=== PATIENT | female | born 1970 | race Caucasian/White ===

== ENCOUNTER 2017-01-03 09:18 | Emergency (ER) | payer OTHER ==
[~2017-01-03] VITALS: Ht 157.4 cm; Wt 94.8 kg
[~2017-01-03 09:18] MED LIST: ADVAIR 250/501 EA INH; AMINOPHYLLIN200 MG PO; ANTIBIOTIC O500 U/GM TP; ASPIR LOW81 MG PO; ATROVENT 0.03%30 ML NAS; BACTRIM DS 8001 TA1 PO; BACTRIM DS 8001 TAB PO; BENADRYL25 M2 PO; CEPHALEXIN500 M1 PO; Cepacol PO; DESYREL; DUONEB 3 MG/3 ML3 M1 NEB; KROGER NIC21 MG/24 H T; LEVAQUIN750 M1 PO; LIDEX 0.05% CRE15 GM T; METOPROLOL SUCC25 M2 PO; MOTRIN800 MG PO; MUCINEX ER600 MG PO; NEBULIZER INH; PERCOCET 325 MG1 TA2 PO; PREDNISONE10 MG PO; PREDNISONE50 MG PO; PYRIDIUM100 MG PO; Percocet 325 MG1 TAB PO; RISPERDAL1 M1 PO; RISPERDAL2 M1 PO; ROBAXIN750 MG PO; ROBITUSSIN DM480 ML PO; SYMBICORT1 AE1 INH; TOPROL XL25 MG PO; TRAMADOL HCL50 MG PO; TRAZODONE100 MG PO; VENTOLIN 02.5 MG/3 M INH; VENTOLIN H0.09 MG/AC INH; ZITHROMAX Z PA250 MG PO
[2017-01-03 09:29] VITALS: BP 175/96
[2017-01-03] MEDS ORDERED: NAPROSYN500 MG PO (09:37)
== END 2017-01-03 10:32 | disposition home or self-care (01) ==
LOC: ED 09:18
DX: S82.891A Other fracture of right lower leg, initial encounter for closed fracture (principal); F17.200 Nicotine dependence, unspecified, uncomplicated; F12.10 Cannabis abuse, uncomplicated; J44.9 Chronic obstructive pulmonary disease, unspecified; F32.9 Major depressive disorder, single episode, unspecified; E78.5 Hyperlipidemia, unspecified; I10 Essential (primary) hypertension; I25.2 Old myocardial infarction; E66.9 Obesity, unspecified; Z68.39 Body mass index [BMI] 39.0-39.9, adult; Z79.899 Other long term (current) drug therapy; Z90.49 Acquired absence of other specified parts of digestive tract; Z98.890 Other specified postprocedural states; Z98.51 Tubal ligation status; Z90.711 Acquired absence of uterus with remaining cervical stump; X58.XXXA Exposure to other specified factors, initial encounter; Y93.89 Activity, other specified; Y92.89 Other specified places as the place of occurrence of the external cause; Y99.9 Unspecified external cause status

== ENCOUNTER → 2017-01-11 | Outpatient (CLI) | payer OTHER ==
[~2017-01-11] MED LIST changes: +NAPROSYN500 MG PO
== END | disposition home or self-care (01) ==
LOC: MAMMO 10:26
DX: Z12.31 Encounter for screening mammogram for malignant neoplasm of breast (principal)

== ENCOUNTER → 2017-02-01 | Outpatient (CLI) | payer OTHER | END | disposition home or self-care (01) | LOC: ORTHO 02:35 | DX: S82.54XA Nondisplaced fracture of medial malleolus of right tibia, initial encounter for closed fracture (principal); X58.XXXA Exposure to other specified factors, initial encounter; Y93.89 Activity, other specified; Y92.89 Other specified places as the place of occurrence of the external cause; Y99.8 Other external cause status ==

== ENCOUNTER 2019-01-09 06:18 | Emergency (ER) | payer OTHER ==
[~2019-01-09] VITALS: Ht 157.4 cm; Wt 102.1 kg
[2019-01-09 06:20] VITALS: BP 122/70
[2019-01-09] MEDS ORDERED: NORCO 5-325 TA1 EACH PO (08:10)
[2019-01-09] MEDS ORDERED: Motrin,Rufen800 MG PO (08:11)
== END 2019-01-09 08:45 | disposition home or self-care (01) ==
LOC: ED 06:18
DX: S90.02XA Contusion of left ankle, initial encounter (principal); F12.10 Cannabis abuse, uncomplicated; F17.200 Nicotine dependence, unspecified, uncomplicated; J44.9 Chronic obstructive pulmonary disease, unspecified; I10 Essential (primary) hypertension; E78.5 Hyperlipidemia, unspecified; I25.2 Old myocardial infarction; E66.9 Obesity, unspecified; Z68.39 Body mass index [BMI] 39.0-39.9, adult; Z90.49 Acquired absence of other specified parts of digestive tract; Z98.890 Other specified postprocedural states; Z98.51 Tubal ligation status; Z79.899 Other long term (current) drug therapy; W17.2XXA Fall into hole, initial encounter; Y93.89 Activity, other specified; Y92.89 Other specified places as the place of occurrence of the external cause; Y99.9 Unspecified external cause status

== ENCOUNTER 2019-08-20 09:55 | Emergency (ER) | payer OTHER ==
[~2019-08-20] VITALS: Wt 86.6 kg
[~2019-08-20 09:55] MED LIST changes: +CYCLOBENZAPRINE10 MG PO; +Motrin,Rufen800 MG PO; +NORCO 5-325 TA1 EACH PO
[2019-08-20 09:56] VITALS: BP 129/72
[2019-08-20] MEDS ORDERED: FLONASE ALLERG9.9 ML NAS (10:50)
[2019-08-20] MEDS ORDERED: CEPHALEXIN500 M1 PO (10:50)
[2019-08-20] MEDS ORDERED: ZYRTEC10 MG PO (10:50)
== END 2019-08-20 10:56 | disposition home or self-care (01) ==
LOC: ED 09:55
DX: J06.9 Acute upper respiratory infection, unspecified (principal); L02.811 Cutaneous abscess of head [any part, except face]; C34.90 Malignant neoplasm of unspecified part of unspecified bronchus or lung; J44.9 Chronic obstructive pulmonary disease, unspecified; E78.00 Pure hypercholesterolemia, unspecified; F17.200 Nicotine dependence, unspecified, uncomplicated; Z79.2 Long term (current) use of antibiotics; Z79.899 Other long term (current) drug therapy

== ENCOUNTER → 2019-09-18 | Outpatient (CLI) | payer OTHER ==
[~2019-09-18] MED LIST changes: +FLONASE ALLERG9.9 ML NAS; +ZYRTEC10 MG PO
== END | disposition home or self-care (01) ==
LOC: RAD 10:24
DX: L03.90 Cellulitis, unspecified (principal)

== ENCOUNTER → 2020-09-22 | Outpatient (CLI) | payer OTHER ==
[~2020-09-22] MED LIST changes: +ASPIRIN LITE C325 MG PO; +AZELASTINE137 MCG/0. NAS; +CLOPIDOGREL75 MG PO; +DEPAKOTE500 MG PO; +DICLO GEL1 EACH T; +GLUCOPHAGE500 M1 PO; +KLONOPIN1 M1 PO; +LATUDA60 M1 PO; +LIPITOR80 MG PO; +MELATONIN5 M1 PO; +PROAIR HFA8.5 GM INH; +ZESTRIL10 MG PO; +ZYLOPRIM100 MG PO
--- NOTE | 2020-09-22 11:05 | NUR ---
PT COMPLETED ONE MINUTE OF A LEXISCAN STRESS TEST WITH DR COLLINS RESTING EKG NSR HR 62 BP 116/76. FAINT EXPIRATORY WHEEZE POX 97% PT COMPLETED ONE MINUTE OF A LEXISCAN STRESS TEST WITH PT RECEIVING LEXISCAN 0.4MG IV OVER 10 SECONDS. NO ARRHYTHMIAS OR ST CHANGES NOTED. PT C/O SOB WITH INJECTION, THAT RESOLVED. LAST RECOVERY HR OF 86 BP 122/70. PT IN STABLE CONDITION, AWAITING NUCLEAR IMAGES.
== END | disposition home or self-care (01) ==
LOC: CARD 00:12
PROVIDERS: ATTEND Internal Medicine Cardiovascular Disease
DX: Z01.810 Encounter for preprocedural cardiovascular examination (principal); R53.81 Other malaise; R06.02 Shortness of breath

== ENCOUNTER 2021-09-21 04:46 | Inpatient (IN) | payer OTHER ==
[~2021-09-21] VITALS: Ht 160 cm; Wt 62.6 kg
[~2021-09-21 04:46] MED LIST changes: +ELIQUIS5 M1 PO
[2021-09-21 04:49] VITALS: BP 108/78; BP 213/151
[2021-09-21 05:30] LABS: ACT PARTIAL THROMBO TIME 25.1 SECONDS (20.0-32.1); INTERNATIONAL NORM RATIO 1.1 (2.0-3.5)
[2021-09-21 05:41] LABS: ALBUMIN 2.4 gm/dl (3.1-4.5); ALKALINE PHOSPHATASE 80 U/L (45-117); BUN 16 mg/dl (7-24); CHLORIDE 103 mmol/L (98-107); POTASSIUM 4.4 mmol/L (3.5-5.1); SGOT/AST 11 IU/L (3-35); SGPT/ALT 16 U/L (12-78); SODIUM 140 mmol/L (136-145); TOTAL PROTEIN 5.6 gm/dL (6.4-8.2)
[2021-09-21 05:55] LABS: BASO # 0.1 10*3/uL (0.0-0.1); BASO % 0.4 % (0.0-1.0); EOS # 0.1 10*3/uL (0.0-0.4); EOS % 0.8 % (1.0-4.0); LYMPH # 0.7 10*3/uL (1.3-4.4); LYMPH % 4.9 % (27.0-41.0); MEAN CELL VOLUME 101.4 fl (81.0-99.0); MEAN CORPUSCULAR HGB 32.1 pg (27.0-31.0); MEAN CORPUSCULAR HGB CONC 31.6 g/dl (33.0-37.0); MEAN PLATELET VOLUME 10.1 fl (9.6-12.3); MONO # 0.9 10*3/uL (0.1-1.0); MONO % 6.2 % (3.0-9.0); NEUT # 12.3 10*3/uL (2.3-7.9); NEUT % 85.8 % (47.0-73.0); PLATELET COUNT AUTOMATED 332 10*3/uL (130-400); RED BLOOD COUNT 3.65 10*6/uL (4.10-5.10); RED CELL DISTRI WIDTH 18.3 % (0-14.5); WHITE BLOOD COUNT 14.3 10*3/uL (4.8-10.8)
[2021-09-21 13:45] VITALS: BP 96/55
[2021-09-21 19:33] VITALS: BP 112/66
[2021-09-21 20:16] VITALS: BP 90/67
[2021-09-21 22:07] VITALS: BP 106/72
[2021-09-21 23:09] VITALS: BP 117/86
[2021-09-22] VITALS (15 sets, daily range): BP systolic 75–148; BP diastolic 39–85
[2021-09-22 04:36] LABS: ABG BASE EXCESS -0.9 mmol/L (-2.0-2.0); ARTERIAL BLOOD GAS PH 7.369 (7.35-7.45); ARTERIAL BLOOD GAS PO2 63.5 (80-90)
[2021-09-22 05:24] LABS: BUN 18 mg/dl (7-24); CHLORIDE 105 mmol/L (98-107); CHOLESTEROL 108 mg/dL (<200); CREATININE 1.07 mg/dL (0.55-1.02); LDL CHOLESTEROL 38 mg/dL (9-159); POTASSIUM 4.8 mmol/L (3.5-5.1); SODIUM 140 mmol/L (136-145); TRIGLYCERIDES 236 mg/dl (<150)
[2021-09-22 06:16] LABS: HEMATOCRIT 32.5 % (37.0-47.0); MEAN CELL VOLUME 102.2 fl (81.0-99.0); MEAN CORPUSCULAR HGB 31.8 pg (27.0-31.0); MEAN CORPUSCULAR HGB CONC 31.1 g/dl (33.0-37.0); MEAN PLATELET VOLUME 10.5 fl (9.6-12.3); PLATELET COUNT AUTOMATED 252 10*3/uL (130-400); RED BLOOD COUNT 3.18 10*6/uL (4.10-5.10); RED CELL DISTRI WIDTH 18.2 % (0-14.5); WHITE BLOOD COUNT 19.3 10*3/uL (4.8-10.8)
[2021-09-22 07:34] LABS: TOTAL CELLS COUNTED 100 #CELLS
[2021-09-22 07:35] LABS: PLATELET SUFFICIENCY NORMAL (NORMAL)
[2021-09-23] VITALS: BP 92/55
[2021-09-23 04:00] VITALS: BP 98/63
[2021-09-23 05:48] LABS: ALBUMIN 1.5 gm/dl (3.1-4.5); ALKALINE PHOSPHATASE 64 U/L (45-117); BUN 17 mg/dl (7-24); CHLORIDE 110 mmol/L (98-107); CREATININE 0.65 mg/dL (0.55-1.02); POTASSIUM 4.2 mmol/L (3.5-5.1); SGOT/AST 11 IU/L (3-35); SGPT/ALT 16 U/L (12-78); SODIUM 142 mmol/L (136-145); TOTAL PROTEIN 3.7 gm/dL (6.4-8.2)
[2021-09-23 06:05] LABS: BASO % 0.3 % (0.0-1.0); EOS % 0.3 % (1.0-4.0); HEMATOCRIT 25.4 % (37.0-47.0); LYMPH # 0.4 10*3/uL (1.3-4.4); LYMPH % 3.4 % (27.0-41.0); MEAN CELL VOLUME 100.8 fl (81.0-99.0); MEAN CORPUSCULAR HGB 31.7 pg (27.0-31.0); MEAN CORPUSCULAR HGB CONC 31.5 g/dl (33.0-37.0); MEAN PLATELET VOLUME 9.6 fl (9.6-12.3); MONO # 0.7 10*3/uL (0.1-1.0); MONO % 6.1 % (3.0-9.0); NEUT # 10.6 10*3/uL (2.3-7.9); NEUT % 89.1 % (47.0-73.0); PLATELET COUNT AUTOMATED 207 10*3/uL (130-400); RED BLOOD COUNT 2.52 10*6/uL (4.10-5.10); RED CELL DISTRI WIDTH 18.6 % (0-14.5); WHITE BLOOD COUNT 11.9 10*3/uL (4.8-10.8)
[2021-09-23 08:00] VITALS: BP 87/56
[2021-09-23 12:00] VITALS: BP 101/55
[2021-09-23 16:00] VITALS: BP 113/68
[2021-09-23 20:00] VITALS: BP 119/75
[2021-09-24] VITALS: BP 92/66
[2021-09-24 04:00] VITALS: BP 92/53
[2021-09-24 06:06] LABS: HEMATOCRIT 26.4 % (37.0-47.0); MEAN CELL VOLUME 101.1 fl (81.0-99.0); MEAN CORPUSCULAR HGB CONC 30.7 g/dl (33.0-37.0); MEAN PLATELET VOLUME 9.9 fl (9.6-12.3); PLATELET COUNT AUTOMATED 206 10*3/uL (130-400); RED BLOOD COUNT 2.61 10*6/uL (4.10-5.10); RED CELL DISTRI WIDTH 18.3 % (0-14.5)
[2021-09-24 06:26] LABS: ALBUMIN 1.6 gm/dl (3.1-4.5); BUN 18 mg/dl (7-24); CHLORIDE 110 mmol/L (98-107); CREATININE 0.62 mg/dL (0.55-1.02); POTASSIUM 4.1 mmol/L (3.5-5.1); SGOT/AST 13 IU/L (3-35); SGPT/ALT 15 U/L (12-78); SODIUM 142 mmol/L (136-145)
[2021-09-24 06:28] LABS: ALKALINE PHOSPHATASE 68 U/L (45-117); TOTAL PROTEIN 4.1 gm/dL (6.4-8.2)
[2021-09-24 07:52] LABS: TOTAL CELLS COUNTED 100 #CELLS
[2021-09-24 07:53] LABS: PLATELET SUFFICIENCY NORMAL (NORMAL)
[2021-09-24 08:00] VITALS: BP 101/56
[2021-09-24 12:00] VITALS: BP 86/52
[2021-09-24 16:00] VITALS: BP 85/50
[2021-09-24 20:00] VITALS: BP 90/52
[2021-09-25] VITALS: BP 112/57
[2021-09-25 04:00] VITALS: BP 100/60
[2021-09-25 06:19] LABS: CHLORIDE 107 mmol/L (98-107); POTASSIUM 4.2 mmol/L (3.5-5.1); SODIUM 140 mmol/L (136-145)
[2021-09-25 06:31] LABS: ALBUMIN 1.6 gm/dl (3.1-4.5); ALKALINE PHOSPHATASE 71 U/L (45-117); BUN 21 mg/dl (7-24); CREATININE 0.66 mg/dL (0.55-1.02); MEAN CELL VOLUME 101.6 fl (81.0-99.0); MEAN CORPUSCULAR HGB 31.3 pg (27.0-31.0); MEAN CORPUSCULAR HGB CONC 30.8 g/dl (33.0-37.0); PLATELET COUNT AUTOMATED 211 10*3/uL (130-400); RED BLOOD COUNT 2.56 10*6/uL (4.10-5.10); RED CELL DISTRI WIDTH 18.1 % (0-14.5); SGOT/AST 10 IU/L (3-35); SGPT/ALT 14 U/L (12-78); TOTAL PROTEIN 4.2 gm/dL (6.4-8.2); WHITE BLOOD COUNT 12.1 10*3/uL (4.8-10.8)
[2021-09-25 07:53] LABS: PLATELET SUFFICIENCY NORMAL (NORMAL); TOTAL CELLS COUNTED 100 #CELLS
[2021-09-25 08:00] VITALS: BP 119/70
[2021-09-25 12:00] VITALS: BP 94/53
[2021-09-25 16:00] VITALS: BP 103/55
[2021-09-25 20:00] VITALS: BP 89/59
[2021-09-26] VITALS: BP 105/61
[2021-09-26 04:00] VITALS: BP 110/67
[2021-09-26 05:57] LABS: ALBUMIN 1.6 gm/dl (3.1-4.5); ALKALINE PHOSPHATASE 71 U/L (45-117); BUN 22 mg/dl (7-24); CHLORIDE 108 mmol/L (98-107); CREATININE 0.69 mg/dL (0.55-1.02); POTASSIUM 4.5 mmol/L (3.5-5.1); SGOT/AST 7 IU/L (3-35); SGPT/ALT 15 U/L (12-78); SODIUM 139 mmol/L (136-145); TOTAL PROTEIN 4.3 gm/dL (6.4-8.2)
[2021-09-26 06:23] LABS: HEMATOCRIT 27.8 % (37.0-47.0); MEAN CELL VOLUME 102.2 fl (81.0-99.0); MEAN CORPUSCULAR HGB 31.3 pg (27.0-31.0); MEAN CORPUSCULAR HGB CONC 30.6 g/dl (33.0-37.0); PLATELET COUNT AUTOMATED 244 10*3/uL (130-400); RED BLOOD COUNT 2.72 10*6/uL (4.10-5.10); RED CELL DISTRI WIDTH 18.4 % (0-14.5); WHITE BLOOD COUNT 12.5 10*3/uL (4.8-10.8)
[2021-09-26 07:34] LABS: BURR CELLS FEW; OVALOCYTES FEW; PLATELET SUFFICIENCY NORMAL (NORMAL); SCHISTOCYTES FEW; TOTAL CELLS COUNTED 100 #CELLS
[2021-09-26 07:35] LABS: TOXIC GRANULATION SLIGHT
[2021-09-26 08:00] VITALS: BP 112/67
[2021-09-26 16:00] VITALS: BP 104/65
[2021-09-26 20:00] VITALS: BP 114/68
[2021-09-27] VITALS: BP 125/74
[2021-09-27 07:33] LABS: HEMATOCRIT 26.2 % (37.0-47.0); MEAN CELL VOLUME 99.6 fl (81.0-99.0); MEAN CORPUSCULAR HGB 31.2 pg (27.0-31.0); MEAN CORPUSCULAR HGB CONC 31.3 g/dl (33.0-37.0); MEAN PLATELET VOLUME 9.6 fl (9.6-12.3); PLATELET COUNT AUTOMATED 257 10*3/uL (130-400); RED BLOOD COUNT 2.63 10*6/uL (4.10-5.10); RED CELL DISTRI WIDTH 18.3 % (0-14.5)
[2021-09-27 07:50] LABS: BUN 20 mg/dl (7-24); CHLORIDE 109 mmol/L (98-107); POTASSIUM 4.3 mmol/L (3.5-5.1); SODIUM 141 mmol/L (136-145)
[2021-09-27 07:59] LABS: BURR CELLS FEW; OVALOCYTES FEW; PLATELET SUFFICIENCY NORMAL (NORMAL); POLYCHROMASIA SLIGHT; ROULEAUX SLIGHT; TOTAL CELLS COUNTED 100 #CELLS; TOXIC GRANULATION SLIGHT
[2021-09-27 08:00] VITALS: BP 131/71
[2021-09-27 08:30] VITALS: BP 128/72
[2021-09-27 12:00] VITALS: BP 112/72
[2021-09-27 16:00] VITALS: BP 111/57
[2021-09-27 20:00] VITALS: BP 112/60
[2021-09-27] MEDS ORDERED: LEVOFLOXACIN750 M2 PO (23:02)
[2021-09-28] VITALS: BP 94/56
[2021-09-28 06:30] LABS: HEMATOCRIT 25.6 % (37.0-47.0); MEAN CELL VOLUME 98.8 fl (81.0-99.0); MEAN CORPUSCULAR HGB 31.3 pg (27.0-31.0); MEAN CORPUSCULAR HGB CONC 31.6 g/dl (33.0-37.0); MEAN PLATELET VOLUME 9.3 fl (9.6-12.3); PLATELET COUNT AUTOMATED 284 10*3/uL (130-400); RED BLOOD COUNT 2.59 10*6/uL (4.10-5.10); RED CELL DISTRI WIDTH 18.3 % (0-14.5); WHITE BLOOD COUNT 13.9 10*3/uL (4.8-10.8)
[2021-09-28 06:59] LABS: ALBUMIN 1.7 gm/dl (3.1-4.5); ALKALINE PHOSPHATASE 64 U/L (45-117); BUN 24 mg/dl (7-24); CHLORIDE 100 mmol/L (98-107); CREATININE 0.74 mg/dL (0.55-1.02); POTASSIUM 4.2 mmol/L (3.5-5.1); SGOT/AST 16 IU/L (3-35); SGPT/ALT 35 U/L (12-78); SODIUM 138 mmol/L (136-145); TOTAL PROTEIN 4.5 gm/dL (6.4-8.2)
[2021-09-28 07:27] LABS: BURR CELLS FEW; OVALOCYTES FEW; PLATELET SUFFICIENCY NORMAL (NORMAL); TOTAL CELLS COUNTED 100 #CELLS; TOXIC GRANULATION SLIGHT; VACUOLATION OF NEUTROPHILS SLIGHT
[2021-09-28 08:00] VITALS: BP 82/60
[2021-09-28] MEDS ORDERED: PREDNISONE10 MG PO (11:55)
[2021-09-28] MEDS ORDERED: LASIX40 MG PO (11:56)
[2021-09-28 12:00] VITALS: BP 100/47; BP 149/77
== END 2021-09-28 15:04 | disposition home or self-care (01) | DRG 720 ==
LOC: ED 04:46 → ICCU 06:48 → 5E 06:48 → EDHOLD 06:48 → 4E 09-22 04:45 → ICCU 09-22 10:54 → 5E 09-26 21:58
PROVIDERS: Emergency Medicine; Hospitalist; Internal Medicine; Student in an Organized Health Care Education/Training Program; ADMIT Internal Medicine; ATTEND Internal Medicine
PROC: 0W9B30Z Drainage of Left Pleural Cavity with Drainage Device, Percutaneous Approach (ICD-10-PCS; principal; 2021-09-24)
DX: A41.9 Sepsis, unspecified organism (principal); J12.82 Pneumonia due to coronavirus disease 2019; J96.01 Acute respiratory failure with hypoxia; U07.1 COVID-19; E44.0 Moderate protein-calorie malnutrition; R65.20 Severe sepsis without septic shock; R73.9 Hyperglycemia, unspecified; E83.42 Hypomagnesemia; E78.5 Hyperlipidemia, unspecified; I10 Essential (primary) hypertension; J94.2 Hemothorax; J44.0 Chronic obstructive pulmonary disease with (acute) lower respiratory infection; F32.9 Major depressive disorder, single episode, unspecified; I27.82 Chronic pulmonary embolism; J94.8 Other specified pleural conditions; D53.9 Nutritional anemia, unspecified; Z90.49 Acquired absence of other specified parts of digestive tract; Z90.710 Acquired absence of both cervix and uterus; I25.2 Old myocardial infarction; Z88.6 Allergy status to analgesic agent

== ENCOUNTER 2021-10-01 12:52 | Emergency (ER) | payer OTHER ==
[~2021-10-01] VITALS: Wt 62.1 kg
[~2021-10-01 12:52] MED LIST changes: +LASIX40 MG PO; +LEVOFLOXACIN750 M2 PO
[2021-10-01 12:59] VITALS: BP 00/00
== END 2021-10-01 17:10 ==
LOC: ED 12:52
DX: I46.9 Cardiac arrest, cause unspecified (principal); J93.9 Pneumothorax, unspecified; Z88.6 Allergy status to analgesic agent; Z79.899 Other long term (current) drug therapy; Z79.82 Long term (current) use of aspirin; E78.5 Hyperlipidemia, unspecified; J44.9 Chronic obstructive pulmonary disease, unspecified; I11.0 Hypertensive heart disease with heart failure; I50.9 Heart failure, unspecified